=== PATIENT | male | born 1960 | race Caucasian/White ===

== ENCOUNTER 2021-07-03 08:28 | Day surgery (SDC) | payer OTHER ==
[~2021-07-03] VITALS: Ht 175.3 cm; Wt 83.0 kg
[~2021-07-03 08:28] MED LIST: LISI5 PO; METF500 PO; MULVITA PO; Metoprolol Succ25 MG PO; OMEP20ER PO; ROSU10TA PO; ST. JOSEPH ASPI81 MG PO
--- NOTE | 2021-07-03 10:04 | NUR ---
Ambulatory in Day Surgery History, Chart, Medications and Allergies reviewed before start of procedure. Lungs clear T/O to Auscultation. Patient confirms NPO status and agrees with scheduled surgery. Pre-Op teaching done. Pt verbalizes understanding. Patient States Post-Procedure ride home has been arranged.
--- NOTE | 2021-07-03 11:15 | NUR ---
AFTER CLIPPING AND WIPING THE ABDOMIN WITH WIPE, PT STATED "IT WAS GETTING A BIT ITCHY" PT HAS DEVELOPED SOME REDNESS ON LOWER LEFT ADBOMEN. DR. ABDI LOOKED AT IT AND SAYS ITS OKAY. PT STATES "IT IS FEELING BETTER."
== END 2021-07-03 22:56 | disposition home or self-care (01) ==
LOC: ORSCMMR 08:28 → ORD 10:30 → ORSCMMR 22:56
PROVIDERS: Surgery
PROC: 0YU60JZ Supplement Left Inguinal Region with Synthetic Substitute, Open Approach (ICD-10-PCS; principal; 2021-07-03 10:30)
DX: K40.90 Unilateral inguinal hernia, without obstruction or gangrene, not specified as recurrent (principal); I10 Essential (primary) hypertension; K21.9 Gastro-esophageal reflux disease without esophagitis; E11.9 Type 2 diabetes mellitus without complications; E78.5 Hyperlipidemia, unspecified; Z79.84 Long term (current) use of oral hypoglycemic drugs; Z79.899 Other long term (current) drug therapy; Z79.82 Long term (current) use of aspirin
CPT/HCPCS: 82947; A9270; C1781; J0690; J1100; J1885; J2250; J2370; J2405; J2704; J3010; J7120

== ENCOUNTER 2021-12-11 06:08 | Day surgery (SDC) | payer OTHER ==
[~2021-12-11] VITALS: Ht 175.3 cm; Wt 84.9 kg
--- NOTE | 2021-12-11 09:44 | NUR ---
0952 RECIEVED PT FROM PACU, S/P LAP TAMIE. 4 ABDOMIONAL INC D&I, VSS. DENIES NAUSEA, CARMINA ICE CHIPS. STATES NEED TO VOID, STAND BY ASSIST TO BR, AMBULATE STEADY ON FEET. VOIDED WITHOUT DIFFICULT
--- NOTE | 2021-12-13 10:20 | NUR ---
12/13/21 1020 Yohana Beltran VERIFICATIONS: EDIT CHART.
== END 2021-12-11 23:38 | disposition home or self-care (01) ==
LOC: ORSCMMR 06:08 → ORD 07:30 → ORSCMMR 07:30
PROVIDERS: Surgery
PROC: 0FT44ZZ Resection of Gallbladder, Percutaneous Endoscopic Approach (ICD-10-PCS; principal; 2021-12-11 07:30)
DX: K80.10 Calculus of gallbladder with chronic cholecystitis without obstruction (principal); I10 Essential (primary) hypertension; G47.33 Obstructive sleep apnea (adult) (pediatric); E11.9 Type 2 diabetes mellitus without complications; E78.5 Hyperlipidemia, unspecified; Z79.84 Long term (current) use of oral hypoglycemic drugs; Z79.899 Other long term (current) drug therapy; Z79.82 Long term (current) use of aspirin
CPT/HCPCS: 82947; 88304; A9270; J0690; J1100; J1885; J2250; J2370; J2405; J2704; J2795; J3010; J7120